=== PATIENT | male | born 1950 | race Two or more races ===

== ENCOUNTER 2017-10-28 11:00 | Emergency (ER) | payer OTHER ==
[~2017-10-28] VITALS: Ht 167.6 cm; Wt 96.2 kg
[2017-10-28] MEDS ORDERED: PROSCAR5 MG ORAL (11:11)
[2017-10-28] MEDS ORDERED: LISINOPRIL5 MG ORAL (11:11)
[2017-10-28] MEDS ORDERED: ATORVASTATIN CA20 MG ORAL (11:11)
[2017-10-28] MEDS ORDERED: BANOPHEN25 MG PO (11:11)
[2017-10-28] MEDS ORDERED: ALFUZOSIN HCL10 MG PO (11:11)
[2017-10-28] MEDS ORDERED: OMEPRAZOLE20 M2 ORAL (11:11)
[2017-10-28] MEDS ORDERED: METFORMIN HCL500 M1 ORAL (11:11)
[2017-10-28] MEDS ORDERED: ZYRTEC10 MG ORAL (11:11)
[2017-10-28] MEDS ORDERED: ALEVE220 M2 PO (11:11)
[2017-10-28] MEDS ORDERED: Ketorolac 30mg Inj IV ONE (11:45)
[2017-10-28 11:55] VITALS: BP 131/83
[2017-10-28 12:11] LABS: APPEARANCE,URINE CLEAR; BILIRUBIN, URINE NEGATIVE (NEGATIVE); GLUCOSE, URINE (UA) NEGATIVE (NEGATIVE); KETONES,URINE NEGATIVE (NEGATIVE); LEUKOCYTE ESTERASE ,URINE 1+ (NEGATIVE); NITRITE,URINE NEGATIVE (NEGATIVE); PH,URINE 5 (4.5-8.0); PROTEIN,URINE 1+ (NEGATIVE); UROBILINOGEN,URINE NORMAL MG/DL (0.0-1.0)
[2017-10-28 12:16] LABS: BASOPHILS % (AUTO) 0.8 % (0.0-2.0); EOSINOPHILS % (AUTO) 6.9 % (0.0-3.0); HEMOGLOBIN 14.1 G/DL (14.2-18.0); LYMPHOCYTES % (AUTO) 20.2 % (20.0-45.0); MEAN CORPUSCULAR VOLUME 93 FL (80-99); MONOCYTES % (AUTO) 7.6 % (1.0-10.0); NEUTROPHILS % (AUTO) 64.5 % (45.0-75.0); PLATELET COUNT 264 K/UL (150-450); RED BLOOD COUNT 4.43 M/UL (4.70-6.10); RED CELL DISTRIBUTION WIDTH 11.4 % (11.6-14.8); WHITE BLOOD COUNT 7.4 K/UL (4.8-10.8)
[2017-10-28 12:19] LABS: COLOR,URINE YELLOW
[2017-10-28 12:25] LABS: ANION GAP 8 mmol/L (5-15); BLOOD UREA NITROGEN 17 mg/dL (7-18); CARBON DIOXIDE 26 MMOL/L (21-32); CHLORIDE 103 MMOL/L (98-107); CREATININE 1.3 MG/DL (0.55-1.30); POTASSIUM 3.7 MMOL/L (3.5-5.1); SODIUM 137 MMOL/L (136-145)
--- NOTE | 2017-10-28 12:25 | Emergency Room Report ---
History of Present Illness General Chief Complaint: Back Pain-No Injury Source: Patient Present Illness HPI Patient presents with back pain. He's been having back pain for the last 2 years. It's never been anything that bothers him much or lasts more than a couple of days, improving with stretching. 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 He is also having trouble sleeping. He also is having difficulty standing and sitting and walking. He denies any fevers, blood thinners, oncologic problems, saddle numbness, incontinence. He's never had this problem evaluated in the past. He rates the pain at 9/10, aching and sharp. It doesn't radiate down his legs. He feels it more on the left-hand side. It's worse when he changes position. He's tried taking 3 over-the- counter Aleve every 4 hours for the last day. He feels this is not helped him at all. He denies prior trauma. The patient is diabetic on oral medication. He states his blood sugars of been slightly higher but doesn't know what they are recently. He denies hypertension. No headache, NVD, dysuria, rashes, other extremity pain. No anxiety or depression. Allergies: Coded Allergies: No Known Allergies (Unverified , 10/28/17) Patient History Past Medical History: see triage record Social History: Denies: smoking, alcohol use, drug use Social History Narrative Drives a van and makes deliveries Reviewed Nursing Documentation: PMH: Agreed; PSxH: Agreed Nursing Documentation-PMH Hx Diabetes: Yes Review of Systems All Other Systems: negative except mentioned in HPI Physical Exam Vital Signs Date Time Temp Pulse Resp B/P (MAP) Pulse Ox O2 Delivery O2 Flow Rate FiO2 10/28/17 11:03 98.0 82 18 131/83 96 Room Air 98.1 Sp02 EP Interpretation: reviewed, normal General Appearance: well appearing, no apparent distress, GCS 15 Head: normocephalic Eyes: bilateral eye normal inspection, bilateral eye PERRL ENT: moist mucus membranes Neck: supple Respiratory: lungs clear, normal breath sounds Cardiovascular #1: regular rate, rhythm Cardiovascular #2: 2+ radial (R) Gastrointestinal: normal inspection, normal bowel sounds, non tender, no mass, non-distended Musculoskeletal: normal range of motion, no calf tenderness, pelvis stable, other - stiffness in lower back with spasm, able to sit and stand with difficulty. SLR bilat increases pain in lower back without radiaiont Neurologic: alert, oriented x3, motor strength/tone normal, DTRs symmetric, sensory intact, cerebellar normal, normal gait - stiff, speech normal Psychiatric: mood/affect normal Reflexes: 2+ knee (R), 2+ knee (L), 2+ ankle (R), 2+ ankle (L) Skin: normal inspection, warm/dry Medical Decision Making Diagnostic Impression: Primary Impression: Back pain Qualified Codes: M54.5 - Low back pain Additional Impressions: Osteoarthritis Qualified Codes: M15.0 - Primary generalized (osteo)arthritis Spondylolisthesis Qualified Codes: M43.17 - Spondylolisthesis, lumbosacral region Diabetes Qualified Codes: E11.9 - Type 2 diabetes mellitus without complications ER Course Patient presents with a dramatic worsening of his lower back pain over the last 3 days. Differential includes degenerative disc disease, osteoarthritis, aortic aneurysm, renal stone, UTI, muscle spasm and strain. He has a nonfocal neurologic exam and red flag symptoms are negative. However due to his age and never having workup in having pain out of control the patient needs to have evaluation with labs and CT of the back. He has significant pain at this time and we will be treating him with analgesia. Difficulty is that he drove himself here and there were for were limited in giving him on narcotics. Labs with normal CBC, CMP, sed rate and urine (except for slightly elevated glucose). CT with severe DJD and some spondylosysthesis L5, S1. Improved with treatment. Discussed results need for follow up care including PT. Patient stable for outpatient observation and treatment. Laboratory Tests Test 10/28/17 12:00 White Blood Count 7.4 K/UL (4.8-10.8) Red Blood Count 4.43 M/UL (4.70-6.10) L Hemoglobin 14.1 G/DL (14.2-18.0) L Hematocrit 41.0 % (42.0-52.0) L Mean Corpuscular Volume 93 FL (80-99) Mean Corpuscular Hemoglobin 31.9 PG (27.0-31.0) H Mean Corpuscular Hemoglobin Concent 34.4 G/DL (32.0-36.0) Red Cell Distribution Width 11.4 % (11.6-14.8) L Platelet Count 264 K/UL (150-450) Mean Platelet Volume 6.8 FL (6.5-10.1) Neutrophils (%) (Auto) 64.5 % (45.0-75.0) Lymphocytes (%) (Auto) 20.2 % (20.0-45.0) Monocytes (%) (Auto) 7.6 % (1.0-10.0) Eosinophils (%) (Auto) 6.9 % (0.0-3.0) H Basophils (%) (Auto) 0.8 % (0.0-2.0) Erythrocyte Sedimentation Rate 12 MM/HR (0-20) Prothrombin Time 10.0 SEC (9.30-11.50) Prothrombin Time INR 1.0 (0.9-1.1) PTT 25 SEC (23-33) Urine Color Yellow Urine Appearance Clear Urine pH 5 (4.5-8.0) Urine Specific [place] 1.020 (1.005-1.035) Urine Protein 1+ (NEGATIVE) H Urine Glucose (UA) Negative (NEGATIVE) Urine Ketones Negative (NEGATIVE) Urine Occult Blood 1+ (NEGATIVE) H Urine Nitrite Negative (NEGATIVE) Urine Bilirubin Negative (NEGATIVE) Urine Urobilinogen Normal MG/DL (0.0-1.0) Urine Leukocyte Esterase 1+ (NEGATIVE) H Urine RBC 2-4 /HPF (0 - 0) H Urine WBC 0-2 /HPF (0 - 0) Urine Squamous Epithelial Cells Occasional /LPF Urine Bacteria Few /HPF (NONE) Urine Mucus Few /LPF (NONE/OCC) H Sodium Level 137 MMOL/L (136-145) Potassium Level 3.7 MMOL/L (3.5-5.1) Chloride Level 103 MMOL/L (98-107) Carbon Dioxide Level 26 MMOL/L (21-32) Anion Gap 8 mmol/L (5-15) Blood Urea Nitrogen 17 mg/dL (7-18) Creatinine 1.3 MG/DL (0.55-1.30) Estimate Glomerular Filtration Rate 55.4 mL/min (>60) Glucose Level 146 MG/DL (74-106) H Calcium Level 9.0 MG/DL (8.5-10.1) Total Bilirubin 0.6 MG/DL (0.2-1.0) Aspartate Amino Transferase (AST) 39 U/L (15-37) H Alanine Aminotransferase (ALT) 77 U/L (12-78) Alkaline Phosphatase 75 U/L (46-116) Total Protein 7.7 G/DL (6.4-8.2) Albumin 4.2 G/DL (3.4-5.0) Globulin 3.5 g/dL Albumin/Globulin Ratio 1.2 (1.0-2.7) CT/MRI/US Diagnostic Results CT/MRI/US Diagnostic Results : Imaging Test Ordered: LS spine Impression IMPRESSION: 1. No acute fracture. 2. Degenerative changes centered at L4-L5 and L5-S1. Status: improved Disposition: HOME, SELF-CARE Condition: Improved Scripts Methocarbamol* (ROBAXIN*) 500 Mg Tablet 500 MG PO TID, #10 TAB 0 Refills Prov: Alton Rivas M.D. 10/28/17 Tramadol Hcl* (ULTRAM*) 50 Mg Tablet 50 MG ORAL Q6H PRN for For Pain, #12 TAB 0 Refills Prov: Alton Rivas M.D. 10/28/17 Ibuprofen* (MOTRIN*) 600 Mg Tablet 600 MG ORAL Q6H PRN for For Pain, #20 TAB Prov: Alton Rivas M.D. 10/28/17 Referrals: NON PHYSICIAN (PCP) Alton Rivas M.D. Oct 28, 2017 12:25
[2017-10-28 12:31] LABS: ALANINE AMINOTRANSFERASE 77 U/L (12-78); ALBUMIN 4.2 G/DL (3.4-5.0); ALBUMIN/GLOBULIN RATIO 1.2 (1.0-2.7); ALKALINE PHOSPHATASE 75 U/L (46-116); ASPARTATE AMINO TRANSFERASE 39 U/L (15-37); BILIRUBIN,TOTAL 0.6 MG/DL (0.2-1.0)
[2017-10-28 13:28] VITALS: BP 127/75
--- NOTE | 2017-10-28 14:18 | Diagnostic Imaging Report ---
INDICATION: Back pain TECHNIQUE: Multiple, contiguous axial cuts of the lumbar spine are obtained. Sagittal and coronal reformats are available. No IV contrast given. One or more of the following dose reduction techniques were used: automated exposure control, adjustment of the mA and/or kV according to patient size, use of iterative reconstruction technique. COMPARISON: None FINDINGS: No fracture or subluxation is identified. Severe disc height loss at L4-L5 and L5-S1 with vacuum disc phenomena with moderate osseous spinal canal stenosis. Mild to moderate bilateral osseous neural foraminal stenosis. Tiny anterior osteophytes. Bilateral facet arthropathy. The vertebral body heights and disc spaces are otherwise preserved. Bone mineralization is within normal limits. No prevertebral soft tissue thickening. Atherosclerotic vascular disease. IMPRESSION: 1. No acute fracture. 2. Degenerative changes centered at L4-L5 and L5-S1. CTDI: 23.21 mGy DLP: 554.68 mGycm
[2017-10-28] MEDS ORDERED: ROBAXIN500 MG PO (14:45)
[2017-10-28] MEDS ORDERED: TRAMADOL HCL50 MG ORAL (14:45)
[2017-10-28] MEDS ORDERED: IBUPROFEN600 MG ORAL (14:45)
[2017-10-28 14:55] VITALS: BP 130/67
[2017-10-28 14:56] VITALS: BP 130/67
== END 2017-10-28 14:56 | disposition home or self-care (01) ==
LOC: EMR 11:40
DX: M54.5 Low back pain (principal); M47.817 Spondylosis without myelopathy or radiculopathy, lumbosacral region; M43.17 Spondylolisthesis, lumbosacral region; M51.37 Other intervertebral disc degeneration, lumbosacral region; E11.9 Type 2 diabetes mellitus without complications
CPT/HCPCS: 36415; 72131; 80053; 81001; 85025; 85610; 85651; 85730; 96372; 99283; J1885

== ENCOUNTER 2017-12-30 19:09 | Emergency (ER) | payer OTHER, MEDICAID ==
[~2017-12-30] VITALS: Ht 167.6 cm; Wt 93.9 kg
[~2017-12-30 19:09] MED LIST: ALEVE220 M2 PO; ALFUZOSIN HCL10 MG PO; ATORVASTATIN CA20 MG ORAL; BANOPHEN25 MG PO; IBUPROFEN600 MG ORAL; LISINOPRIL5 MG ORAL; METFORMIN HCL500 M1 ORAL; OMEPRAZOLE20 M2 ORAL; PROSCAR5 MG ORAL; ROBAXIN500 MG PO; TRAMADOL HCL50 MG ORAL; ZYRTEC10 MG ORAL
[2017-12-30 19:10] VITALS: BP 149/80
[2017-12-30] MEDS ORDERED: Meclizine 25mg tab ORAL ONE (19:30)
[2017-12-30] MEDS ORDERED: Metoclopramide 10mg/2ml Inj IVP ONE (19:30)
[2017-12-30 19:44] LABS: EOSINOPHILS % (AUTO) 5.9 % (0.0-3.0); HEMATOCRIT 39.4 % (42.0-52.0); HEMOGLOBIN 14.2 G/DL (14.2-18.0); LYMPHOCYTES % (AUTO) 19.1 % (20.0-45.0); MEAN CORPUSCULAR VOLUME 91 FL (80-99); MONOCYTES % (AUTO) 7.2 % (1.0-10.0); NEUTROPHILS % (AUTO) 66.8 % (45.0-75.0); PLATELET COUNT 302 K/UL (150-450); RED BLOOD COUNT 4.32 M/UL (4.70-6.10); RED CELL DISTRIBUTION WIDTH 11.7 % (11.6-14.8); WHITE BLOOD COUNT 7.4 K/UL (4.8-10.8)
[2017-12-30 19:59] LABS: ANION GAP 8 mmol/L (5-15); BLOOD UREA NITROGEN 12 mg/dL (7-18); CALCIUM 9.4 MG/DL (8.5-10.1); CARBON DIOXIDE 27 MMOL/L (21-32); CHLORIDE 105 MMOL/L (98-107); CREATININE 1.4 MG/DL (0.55-1.30); POTASSIUM 3.8 MMOL/L (3.5-5.1); SODIUM 140 MMOL/L (136-145)
[2017-12-30 20:04] LABS: ALANINE AMINOTRANSFERASE 66 U/L (12-78); ALBUMIN 3.7 G/DL (3.4-5.0); ALBUMIN/GLOBULIN RATIO 0.9 (1.0-2.7); ALKALINE PHOSPHATASE 86 U/L (46-116); ASPARTATE AMINO TRANSFERASE 27 U/L (15-37); BILIRUBIN,TOTAL 0.4 MG/DL (0.2-1.0)
--- NOTE | 2017-12-30 20:33 | Emergency Room Report ---
History of Present Illness General Chief Complaint: Dizziness Source: Patient Present Illness HPI 67-year-old male presents ED complaining of dizziness 1 day. States he came home from a flight to [place] early this morning and states the dizziness started then. Describes as room spinning sensation. Worse with sudden head movement. Notes nausea and vomiting. Denies any headache. Denies chest pain or shortness of breath. Patient states that he has had this in the past many years ago and it improved with medication. Does not know the name of the medication. No other aggravating relieving factors. Denies any other associated symptoms Allergies: Coded Allergies: No Known Allergies (Unverified , 10/28/17) Patient History Past Medical History: DM Past Surgical History: none Pertinent Family History: none Social History: Denies: smoking, alcohol use, drug use Immunizations: UTD Reviewed Nursing Documentation: PMH: Agreed; PSxH: Agreed Nursing Documentation-PMH Hx Diabetes: Yes Review of Systems All Other Systems: negative except mentioned in HPI Physical Exam Vital Signs Date Time Temp Pulse Resp B/P (MAP) Pulse Ox O2 Delivery O2 Flow Rate FiO2 12/30/17 19:10 98.4 66 16 149/80 98 Room Air 98.4 Sp02 EP Interpretation: reviewed, normal General Appearance: no apparent distress, alert, GCS 15, non-toxic Head: normocephalic, atraumatic Eyes: bilateral eye normal inspection, bilateral eye PERRL ENT: hearing grossly normal, normal pharynx, no angioedema, normal voice Neck: full range of motion, supple/symm/no masses Respiratory: chest non-tender, lungs clear, normal breath sounds, speaking full sentences Cardiovascular #1: regular rate, rhythm, no edema Cardiovascular #2: 2+ carotid (R), 2+ carotid (L), 2+ radial (R), 2+ radial (L) , 2+ dorsalis pedis (R), 2+ dorsalis pedis (L) Gastrointestinal: normal bowel sounds, non tender, soft, non-distended, no guarding, no rebound Rectal: deferred Genitourinary: normal inspection, no CVA tenderness Musculoskeletal: back normal, gait/station normal, normal range of motion, non- tender Neurologic: alert, oriented x3, responsive, shade bander III-XII nml as tested, motor strength/tone normal, sensory intact, speech normal Psychiatric: judgement/insight normal, memory normal, mood/affect normal, no suicidal/homicidal ideation Reflexes: 3+ bicep (R), 3+ bicep (L), 3+ tricep (R), 3+ tricep (L), 3+ knee (R) , 3+ knee (L) Skin: normal color, no rash, warm/dry, well hydrated Lymphatic: no adenopathy Medical Decision Making Diagnostic Impression: Primary Impression: Vertigo ER Course Hospital Course 67-year-old male presents ED complaining of dizziness Differential diagnoses include: SVT, A. fib, V. tach, CVA/TIA, intracranial mass , vertigo Clinical course Patient placed on stretcher. on athletic monitor. After initial history and physical I ordered labs, EKG, IVFs, CT Brain, meclizine and reglan labs reviewed- no leukocytosis, hemoglobin/hematocrit stable, electrolytes okay EKG- NSR, no acute ischemic changes interpreted by me CT brain negative Upon reassessment patient states his symptoms have improved. Clinical findings consistent with vertigo. Patient has prior history of vertigo. Patient safe for discharge with close outpatient follow-up I. I feel this is a highly complex case requiring extensive working including EKG/Rhythm strip, Xray/CT/US, Blood/urine lab work, repeat exams while in ED, and administration of strong opiates/narcotics for pain control, admission to hospital or close patient follow up. Diagnosis - vertigo stable and discharged to home with prescription for meclizine, zofran. Followup with PMD. Return to ED if symptoms recur or worsen Labs Test 12/30/17 19:30 White Blood Count 7.4 K/UL (4.8-10.8) Red Blood Count 4.32 M/UL (4.70-6.10) Hemoglobin 14.2 G/DL (14.2-18.0) Hematocrit 39.4 % (42.0-52.0) Mean Corpuscular Volume 91 FL (80-99) Mean Corpuscular Hemoglobin 32.8 PG (27.0-31.0) Mean Corpuscular Hemoglobin Concent 36.0 G/DL (32.0-36.0) Red Cell Distribution Width 11.7 % (11.6-14.8) Platelet Count 302 K/UL (150-450) Mean Platelet Volume 6.5 FL (6.5-10.1) Neutrophils (%) (Auto) 66.8 % (45.0-75.0) Lymphocytes (%) (Auto) 19.1 % (20.0-45.0) Monocytes (%) (Auto) 7.2 % (1.0-10.0) Eosinophils (%) (Auto) 5.9 % (0.0-3.0) Basophils (%) (Auto) 1.0 % (0.0-2.0) Sodium Level 140 MMOL/L (136-145) Potassium Level 3.8 MMOL/L (3.5-5.1) Chloride Level 105 MMOL/L (98-107) Carbon Dioxide Level 27 MMOL/L (21-32) Anion Gap 8 mmol/L (5-15) Blood Urea Nitrogen 12 mg/dL (7-18) Creatinine 1.4 MG/DL (0.55-1.30) Estimat Glomerular Filtration Rate 50.9 mL/min (>60) Glucose Level 158 MG/DL (74-106) Calcium Level 9.4 MG/DL (8.5-10.1) Total Bilirubin 0.4 MG/DL (0.2-1.0) Aspartate Amino Transf (AST/SGOT) 27 U/L (15-37) Alanine Aminotransferase (ALT/SGPT) 66 U/L (12-78) Alkaline Phosphatase 86 U/L (46-116) Total Protein 7.6 G/DL (6.4-8.2) Albumin 3.7 G/DL (3.4-5.0) Globulin 3.9 g/dL Albumin/Globulin Ratio 0.9 (1.0-2.7) EKG Diagnostic Results Rate: normal Rhythm: NSR ST Segments: no acute changes ASA given to the pt in ED: No Rhythm Strip Diag. Results EP Interpretation: yes Rhythm: NSR, no PVC's, no ectopy CT/MRI/US Diagnostic Results CT/MRI/US Diagnostic Results : Imaging Test Ordered: CT Head Impression no acute process Last Vital Signs Date Time Temp Pulse Resp B/P (MAP) Pulse Ox O2 Delivery O2 Flow Rate FiO2 12/30/17 19:11 98.0 69 18 151/78 96 Room Air 98.1 Status: improved Disposition: HOME, SELF-CARE Condition: Stable Scripts Metoclopramide Hcl* (REGLAN*) 10 Mg Tablet 10 MG ORAL QID, #20 TAB Prov: Dylan Dalton MD 12/30/17 Meclizine Hcl* (VERTICALM*) 25 Mg Tablet 25 MG ORAL THREE TIMES A DAY, #30 TAB Prov: Dylan Dalton MD 12/30/17 Referrals: NON PHYSICIAN (PCP) Dylan Dalton MD Dec 30, 2017 20:33
[2017-12-30] MEDS ORDERED: VERTICALM25 MG ORAL (21:26)
[2017-12-30] MEDS ORDERED: REGLAN10 MG ORAL ×2 (21:26→21:29)
[2017-12-30 21:35] VITALS: BP 144/76
[2017-12-30 21:36] VITALS: BP 151/78
--- NOTE | 2018-01-01 09:13 | Diagnostic Imaging Report ---
Indications: Pain and dizziness Technique: Spiral acquisitions obtained through the brain. Angled axial and coronal 5 x 5 mm slices were reconstructed. Total dose length product 1332.99 mGycm. CTDI vol(s) 70.38 mGy. Dose reduction achieved using automated exposure control Comparison: None. Findings: There is age-related volume loss. No acute intrarenal hemorrhage or edema, mass effect, nor midline shift. Normal taylor-white differentiation. There is bilateral ethmoid sinus disease. There is some sphenoid sinus disease. Intact calvarium. Visualized orbits are unremarkable. Impression: Negative for acute intracranial bleed or mass effect Incidental finding of sinus disease Age-related volume loss This essentially agrees with the preliminary interpretation provided overnight by [facility]. The CT scanner at [facility] is accredited by the [employer] and the scans are performed using protocols designed to limit radiation exposure to as low as reasonably achievable to attain images of sufficient resolution adequate for diagnostic evaluation.
--- NOTE | 2018-01-01 17:26 | Cardiology Report ---
APPROVED REPORT EKG Measurement Heart [id number] Normal sinus rhythm Low voltage QRS Possible Inferior infarct, age undetermined Abnormal ECG
== END 2017-12-30 21:42 | disposition home or self-care (01) ==
LOC: EMR 19:30
DX: R42 Dizziness and giddiness (principal); E11.9 Type 2 diabetes mellitus without complications; R11.2 Nausea with vomiting, unspecified
CPT/HCPCS: 36415; 70450; 80053; 85025; 93005; 96361; 96374; 99284; J2765

== ENCOUNTER 2020-01-13 09:09 | Emergency (ER) | payer OTHER, MEDICAID ==
[~2020-01-13] VITALS: Ht 165.1 cm; Wt 87.5 kg
[~2020-01-13 09:09] MED LIST changes: +REGLAN10 MG ORAL; +VERTICALM25 MG ORAL
[2020-01-13 09:24] VITALS: BP 122/71
--- NOTE | 2020-01-13 09:24 | NUR ---
ED Nurse Note: pt walked into ED from home complaining of 7/10 constant lower back pain for the last 2 weeks. Pt states he has history of arthritis and has been prescribed tylenol 500mg for pain without relief. Pt denies fall, or mechanical injury.
[2020-01-13] MEDS ORDERED: Omnipaque-300 100ml vial INJ PRN (09:45)
--- NOTE | 2020-01-13 09:59 | NUR ---
ED Nurse Note: labs and urine sent to lab
--- NOTE | 2020-01-13 10:03 | NUR ---
ED Nurse Note: lidocaine patch placed on lower back.
--- NOTE | 2020-01-13 10:11 | Emergency Room Report ---
History of Present Illness General Chief Complaint: Lower Back Pain or Injury Source: Patient Present Illness HPI This patient states that he has had low back pain for the past 2 weeks. 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 He states that 2 weeks ago he noted a small amount of pain and over the past 2 weeks the pain has become worse. He states he does have a history of arthritis. He denies trauma. He denies weakness. He denies tingling or numbness. He denies loss of bowel or bladder control. He denies fever or chills. He denies tobacco, alcohol or drug use. He has no other complaints. 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 Patient History Past Medical History: DM, HTN, psych hx - depression, other - depression, enlarged prostate Social History: Denies: smoking, alcohol use, drug use Reviewed Nursing Documentation: PMH: Agreed; PSxH: Agreed Nursing Documentation-PMH Past Medical History: No History, Except For Hx Hypertension: Yes Hx Diabetes: Yes Review of Systems All Other Systems: negative except mentioned in HPI Physical Exam Vital Signs Date Time Temp Pulse Resp B/P (MAP) Pulse Ox O2 Delivery O2 Flow Rate FiO2 01/13/20 09:17 98.4 86 16 120/77 (91) 100 Room Air Sp02 EP Interpretation: reviewed, normal General Appearance: no apparent distress, alert, GCS 15, non-toxic Head: normocephalic, atraumatic Eyes: bilateral eye normal inspection, bilateral eye PERRL ENT: hearing grossly normal, normal pharynx, no angioedema, normal voice Neck: full range of motion, supple/symm/no masses Respiratory: chest non-tender, lungs clear, normal breath sounds, no respiratory distress, no retraction, no accessory muscle use, speaking full sentences Cardiovascular #1: regular rate, rhythm, no edema Gastrointestinal: normal bowel sounds, non tender, soft, non-distended, no guarding, no rebound Rectal: deferred Musculoskeletal: back normal, normal range of motion, gait/station normal, other - TTP along the lumbar spine and sacrum midline. Neurologic: alert, motor strength/tone normal, oriented x3, sensory intact, responsive, speech normal Psychiatric: judgement/insight normal, memory normal, mood/affect normal, no suicidal/homicidal ideation Skin: no rash, normal color Medical Decision Making Diagnostic Impression: Primary Impression: Low back pain ER Course This patient presented with nontraumatic low back pain. My differential diagnosis includes osteoarthritis, mechanical back pain, urinary tract infection , aortic aneurysm, degenerative disc disease to name a few. Given the patient' s age, I felt that I should obtain basic labs to include CBC, CMP and urinalysis. I also obtained imaging studies to include a CT lumbar spine and and abdomen pelvis angiogram to further assess the patient's bony lumbar spine as well of to assess the patient's abdominal aorta. Laboratory work-up was unremarkable. CT of the lumbar spine abdomen pelvis showed no significant findings other than degenerative changes of the spine. There was no evidence of abdominal aortic aneurysm. This appears to be mechanical back pain. There are no red flags on physical exam. The patient denies any concerning features such as trauma, fevers, night sweats, history of malignancy, pain worse at night, IV drug abuse, urinary/fecal incontinence or retention, focal weakness or change in sensation, or refractory pain. Given these pertinent negatives in the history and physical exam an emergent cause of the back pain such as epidural abscess, metastasis to bone, cauda equina syndrome, and fracture is less likely. I also doubt emergent cardiovascular cause of back pain such as aortic dissection a ruptured abdominal aortic aneurysm given patient with equal pulses in all 4 extremities with no diastolic murmur or pulsatile abdominal mass and negative CT of the abdomen pelvis. The patient was counseled that, though unlikely, the possibility of an emergent cause of back pain may still be present and that the patient should return immediately if symptoms persist or worsen. The symptoms are reproducible with movement. Patient had a benign evaluation and neurologic examination. No emergency etiology was identified. Laboratory Tests Test 01/13/20 09:50 White Blood Count 7.8 K/UL (4.8-10.8) Red Blood Count 4.64 M/UL (4.70-6.10) L Hemoglobin 14.5 G/DL (14.2-18.0) Hematocrit 42.5 % (42.0-52.0) Mean Corpuscular Volume 92 FL (80-99) Mean Corpuscular Hemoglobin 31.3 PG (27.0-31.0) H Mean Corpuscular Hemoglobin Concent 34.2 G/DL (32.0-36.0) Red Cell Distribution Width 11.6 % (11.6-14.8) Platelet Count 298 K/UL (150-450) Mean Platelet Volume 6.5 FL (6.5-10.1) Neutrophils (%) (Auto) 71.4 % (45.0-75.0) Lymphocytes (%) (Auto) 18.6 % (20.0-45.0) L Monocytes (%) (Auto) 6.3 % (1.0-10.0) Eosinophils (%) (Auto) 3.0 % (0.0-3.0) Basophils (%) (Auto) 0.6 % (0.0-2.0) Urine Color Red Urine Appearance Clear Urine pH 5 (4.5-8.0) Urine Specific [place] 1.020 (1.005-1.035) Urine Protein Negative (NEGATIVE) Urine Glucose (UA) Negative (NEGATIVE) Urine Ketones 1+ (NEGATIVE) H Urine Blood Negative (NEGATIVE) Urine Nitrite Negative (NEGATIVE) Urine Bilirubin Negative (NEGATIVE) Urine Urobilinogen Normal MG/DL (0.0-1.0) Urine Leukocyte Esterase 1+ (NEGATIVE) H Urine RBC 0 /HPF (0 - 0) Urine WBC 0-2 /HPF (0 - 0) Urine Squamous Epithelial Cells Occasional /LPF Urine Bacteria Occasional /HPF (NONE) Sodium Level 145 MMOL/L (136-145) Potassium Level 4.1 MMOL/L (3.5-5.1) Chloride Level 106 MMOL/L (98-107) Carbon Dioxide Level 25 MMOL/L (21-32) Anion Gap 14 mmol/L (5-15) Blood Urea Nitrogen 14 mg/dL (7-18) Creatinine 1.4 MG/DL (0.55-1.30) H Estimated Glomerular Filtration Rate 50.5 mL/min (>60) Glucose Level 156 MG/DL (74-106) H Calcium Level 8.7 MG/DL (8.5-10.1) Total Bilirubin 0.5 MG/DL (0.2-1.0) Aspartate Amino Transferase (AST) 28 U/L (15-37) Alanine Aminotransferase (ALT) 63 U/L (12-78) Alkaline Phosphatase 104 U/L (46-116) Total Protein 7.6 G/DL (6.4-8.2) Albumin 4.2 G/DL (3.4-5.0) Globulin 3.4 g/dL Albumin/Globulin Ratio 1.2 (1.0-2.7) CT/MRI/US Diagnostic Results CT/MRI/US Diagnostic Results : Imaging Test Ordered: CT L-spine,abd/pelvis Impression CT L-spine: NO ACUTE FRACTURE OR MALALIGNMENT. MILD TO MODERATE SPONDYLOSIS IN THE MID TO LOWER LUMBAR SPINE. CT abd/pelvis: IMPRESSION: NO SIGN OF ACUTE DISEASE IN THE ABDOMEN AND PELVIS. DIVERTICULOSIS WITHOUT ACUTE DIVERTICULITIS. Last Vital Signs Date Time Temp Pulse Resp B/P (MAP) Pulse Ox O2 Delivery O2 Flow Rate FiO2 01/13/20 09:24 98.5 72 18 122/71 100 Room Air Status: improved Disposition: HOME, SELF-CARE Condition: Improved Patient Instructions: Back Pain, Adult Daisha Ibanez DO Jan 13, 2020 10:11
[2020-01-13 10:18] LABS: APPEARANCE,URINE CLEAR; BASOPHILS % (AUTO) 0.6 % (0.0-2.0); BILIRUBIN, URINE NEGATIVE (NEGATIVE); GLUCOSE, URINE (UA) NEGATIVE (NEGATIVE); HEMATOCRIT 42.5 % (42.0-52.0); HEMOGLOBIN 14.5 G/DL (14.2-18.0); KETONES,URINE 1+ (NEGATIVE); LEUKOCYTE ESTERASE ,URINE 1+ (NEGATIVE); LYMPHOCYTES % (AUTO) 18.6 % (20.0-45.0); MEAN CORPUSCULAR VOLUME 92 FL (80-99); MONOCYTES % (AUTO) 6.3 % (1.0-10.0); NEUTROPHILS % (AUTO) 71.4 % (45.0-75.0); PH,URINE 5 (4.5-8.0); PLATELET COUNT 298 K/UL (150-450); PROTEIN,URINE NEGATIVE (NEGATIVE); RED BLOOD COUNT 4.64 M/UL (4.70-6.10); RED CELL DISTRIBUTION WIDTH 11.6 % (11.6-14.8); UROBILINOGEN,URINE NORMAL MG/DL (0.0-1.0); WHITE BLOOD COUNT 7.8 K/UL (4.8-10.8)
[2020-01-13 10:26] LABS: CALCIUM 8.7 MG/DL (8.5-10.1); CREATININE 1.4 MG/DL (0.55-1.30); POTASSIUM 4.1 MMOL/L (3.5-5.1)
[2020-01-13 10:29] LABS: COLOR,URINE RED; NITRITE,URINE NEGATIVE (NEGATIVE)
[2020-01-13 10:31] LABS: ALBUMIN 4.2 G/DL (3.4-5.0); ALBUMIN/GLOBULIN RATIO 1.2 (1.0-2.7); BILIRUBIN,TOTAL 0.5 MG/DL (0.2-1.0)
--- NOTE | 2020-01-13 10:38 | NUR ---
ED Nurse Note: pt transport to CT in stable condition.
--- NOTE | 2020-01-13 10:55 | NUR ---
ED Nurse Note: pt back from CT in stable condition.
--- NOTE | 2020-01-13 11:18 | Diagnostic Imaging Report ---
EXAM: CT CT Abdomen Pelvis w/Contrast INDICATION: Abdominal back pain. COMPARISON: None TECHNIQUE: Axial images were obtained through the abdomen pelvis with intravenous contrast. Sagittal and coronal reformats are generated. All CT scans at this facility are performed using dose modulation techniques as appropriate to a performed exam including the following: automated exposure control with adjustment of the mA and/or kV according to patient size. RADIATION DOSE: CTDIvol: 12.6 mGy DLP: 625.4 mGy-cm Dose information generated by the CT scanner is available in PACS. FINDINGS: The lung bases are clear. The liver and spleen are homogeneous. Gallbladder is without sludge or stone and there is no wall thickening. The pancreas is unremarkable. Adrenals are normal in morphology. The kidneys are normal in size, shape and axis. Small bowel loops are nondistended. There is scattered diverticulosis without sign of acute diverticulitis. The appendix is normal. There is no free fluid or free air. No pathologic adenopathy demonstrated. Urinary bladder appears unremarkable. There are small fatty inguinal hernias bilaterally. Mild degenerative changes of the lumbar spine noted. IMPRESSION: NO SIGN OF ACUTE DISEASE IN THE ABDOMEN AND PELVIS. DIVERTICULOSIS WITHOUT ACUTE DIVERTICULITIS.
--- NOTE | 2020-01-13 11:22 | Diagnostic Imaging Report ---
EXAM: CT CT L Spine no Contrast CLINICAL HISTORY: Back pain. TECHNIQUE: Axial images obtained through the lumbar spine spine with subsequent sagittal and coronal reformat images. All CT scans at this facility are performed using dose modulation techniques as appropriate to a performed exam including the following: automated exposure control with adjustment of the mA and/or kV according to patient size. RADIATION DOSE: CTDIvol: 15.8 mGy DLP: 475.9 mGy-cm Dose information generated by the CT scanner is available in PACS. COMPARISON: None FINDINGS: There is anatomic alignment. Vertebral bodies are intact without compression deformity. There is no fracture, bony lesions or erosions. Degenerative changes noted mainly in the mid to lower lumbar spine. Disc space narrowing at several levels. There is vacuum disc at L3-4 through L5-S1. Endplate sclerosis, spur formation and subcortical cystic change identified at these levels reflecting discogenic disease. Delineation of disc disease by CT is limited but there is suggestion of some bulging at L3-4 and L4-5 estimated at 5 mm. Hypertrophic facet disease with vacuum air also identified at the L5-S1 level. There is no paraspinal soft tissue abnormality. IMPRESSION: NO ACUTE FRACTURE OR MALALIGNMENT. MILD TO MODERATE SPONDYLOSIS IN THE MID TO LOWER LUMBAR SPINE.
[2020-01-13] MEDS ORDERED: ACETAMINOPHEN-1 EAC1 ORAL (11:28)
[2020-01-13] MEDS ORDERED: CYCLOBENZAPRINE10 MG ORAL (11:28)
[2020-01-13 11:36] VITALS: BP 126/78
--- NOTE | 2020-01-13 11:36 | NUR ---
ER DISCHARGE NOTE: Patient is cleared to be discharged per ERMD, pt is aox4, on room air, with stable vital signs. pt states back pain has improved to 2/10. pt was given dc and prescription instructions, pt was able to verbalize understanding, pt id band and iv site removed without complications. pt is able to ambulate with steady gait. pt took all belongings.
== END 2020-01-13 11:36 | disposition home or self-care (01) ==
LOC: EMR 09:40
DX: M54.5 Low back pain (principal); E11.9 Type 2 diabetes mellitus without complications; I10 Essential (primary) hypertension; F32.9 Major depressive disorder, single episode, unspecified; K57.90 Diverticulosis of intestine, part unspecified, without perforation or abscess without bleeding; M47.816 Spondylosis without myelopathy or radiculopathy, lumbar region
CPT/HCPCS: 36415; 72131; 74177; 80053; 81003; 85025; 99284; Q9965

== ENCOUNTER 2020-06-30 17:26 | Emergency (ER) | payer OTHER, MEDICAID ==
[~2020-06-30] VITALS: Ht 165.1 cm; Wt 83.9 kg
[~2020-06-30 17:26] MED LIST changes: +ACETAMINOPHEN-1 EAC1 ORAL; +CYCLOBENZAPRINE10 MG ORAL
--- NOTE | 2020-06-30 18:09 | NUR ---
pt states CHUNG starting 2 days ago. pt states pain all over, pt states dizziness, blurry vision. pt states nausea, denies vomiting. denies sensitivity to light. pt seen here recently for same issue. dx with migraines and has followup with neurologist on 07/07. pt states too much pain. pt took medications prescribed, finished and now no relief. pt hx dm, htn, high cholesterol.
--- NOTE | 2020-06-30 18:28 | Emergency Room Report ---
History of Present Illness General Chief Complaint: Headache Source: Patient Present Illness HPI Patient presents emergency department today complaining of migraine headaches. Patient has a long history of migraine headaches with extensive work-up in the past. Patient has had an MRI in the past which was normal. Patient has had visits to emergency department multiple times for headaches as well. Last 1 was about a month ago per his report. At that time he received Toradol Benadryl Reglan as well as Decadron and symptoms improved significantly. He is wondering if he can have that again. He does have a follow-up appointment with his neurologist on July 07. Patient also has been taking sumatriptan for his headache. Symptoms noted to be moderate. Patient states that he feels tinnitus occasional vertigo and headache. Denies any nausea or vomiting at this time. No other complaints are noted. Symptoms noted to be moderate. Denies any neck stiffness fever or vision changes. No other modifying factors. No other associated signs and symptoms. No other complaints were noted. Allergies: Coded Allergies: No Known Allergies (Unverified , 10/28/17) COVID-19 Screening Contact w/high risk pt: No Recent Travel to affected area: No Experienced COVID-19 symptoms?: No COVID-19 Testing performed [employer]CH[employer]: No Patient History Past Medical History: other - Migraine headaches Past Surgical History: none Pertinent Family History: none Social History: Denies: smoking, alcohol use, drug use Reviewed Nursing Documentation: PMH: Agreed; PSxH: Agreed Nursing Documentation-PMH Past Medical History: No History, Except For Hx Hypertension: Yes Hx Diabetes: Yes Review of Systems All Other Systems: negative except mentioned in HPI Physical Exam Vital Signs Date Time Temp Pulse Resp B/P (MAP) Pulse Ox O2 Delivery O2 Flow Rate FiO2 06/30/20 17:57 98.1 66 18 152/95 (114) 96 Room Air Sp02 EP Interpretation: reviewed, normal General Appearance: normal inspection, well appearing, no apparent distress, alert Head: atraumatic Eyes: bilateral eye normal inspection ENT: normal ENT inspection, hearing grossly normal, normal voice Neck: normal inspection, full range of motion, supple, no bony tend Respiratory: normal inspection, lungs clear, normal breath sounds, no respiratory distress, no retraction, no wheezing Cardiovascular #1: regular rate, rhythm, no edema Gastrointestinal: normal inspection, normal bowel sounds, non tender, soft, no guarding, no hernia Genitourinary: no CVA tenderness Musculoskeletal: normal inspection, back normal, normal range of motion Neurologic: alert, responsive, speech normal, normal inspection Psychiatric: normal inspection, judgement/insight normal, mood/affect normal Skin: no rash Medical Decision Making Diagnostic Impression: Primary Impression: Headache ER Course Patient has a long history of migraine headaches. Differential considerations include migraine headaches, tension headaches, subarachnoid hemorrhage, meningitis. Patient's exam however is benign. There is no evidence of subarachnoid hemorrhage or meningitis. Symptoms fairly chronic for this patient he has recurrent symptoms. He is requesting pain relief. Will provide patient with medications for pain relief. Recommend close outpatient follow-up. Patient already has a follow-up with neurologist in a week. Recommend follow-up with neurologist. Patient is advised to follow up with primary doctor in 2-3 days and return the emergency room for any worsening symptoms and as needed. Last Vital Signs Date Time Temp Pulse Resp B/P (MAP) Pulse Ox O2 Delivery O2 Flow Rate FiO2 06/30/20 17:57 98.1 66 18 152/95 (114) 96 Room Air Status: improved Disposition: HOME, SELF-CARE Condition: Stable Scripts Hydrocodone/Acetaminophen 5-325* (HYDROCODONE/ACETAMINOPHEN 5-325*) 1 Each Tablet 1 TAB ORAL Q6H PRN for For Pain, #10 TAB 0 Refills Prov: Ted Valenzuela MD 06/30/20 Referrals: NON PHYSICIAN (PCP) Ted Valenzuela MD Jun 30, 2020 18:28
[2020-06-30] MEDS ORDERED: DiphenhydrAMINE 50mg/ml Inj IVP ONE (18:30)
[2020-06-30] MEDS ORDERED: Ketorolac 30mg Inj IV ONE (18:30)
[2020-06-30] MEDS ORDERED: Metoclopramide 10mg/2ml Inj IVP ONE (18:30)
[2020-06-30] MEDS ORDERED: HYDROCODON-ACE1 EA15 ORAL (19:10)
[2020-06-30 19:45] VITALS: BP 148/84
--- NOTE | 2020-06-30 19:45 | NUR ---
ER DISCHARGE NOTE: Patient is cleared to be discharged per ERMD, pt is aox4, on room air, with stable vital signs. pt was given dc and prescription instructions, pt was able to verbalize understanding, pt id band and iv site removed without complications. pt is able to ambulate with steady gait. pt took all belongings.
== END 2020-06-30 19:45 | disposition home or self-care (01) ==
LOC: EMR 18:23
DX: R51.9 Headache, unspecified (principal); I10 Essential (primary) hypertension; E11.9 Type 2 diabetes mellitus without complications
CPT/HCPCS: 96361; 96374; 96375; 99284; J1200; J1885; J2765; J7030